=== PATIENT | female | born 1985 | race Caucasian/White ===

== ENCOUNTER 2018-04-03 15:37 | Emergency (ER) | payer MEDICAID ==
[~2018-04-03] VITALS: Ht 149.9 cm; Wt 64.1 kg
[~2018-04-03 15:37] MED LIST: CYCL-1 PO; ERYT1OIN6 LEFTEYE; PROM25TA14 PO
[2018-04-03 15:49] VITALS: BP 131/75
[2018-04-03] MEDS ORDERED: ERYT1OIN6 EACHEYE (16:28)
== END 2018-04-03 16:35 | disposition home or self-care (01) ==
LOC: ER 15:37
DX: H10.9 Unspecified conjunctivitis (principal); Z88.2 Allergy status to sulfonamides; Z79.899 Other long term (current) drug therapy
CPT/HCPCS: 99283

== ENCOUNTER 2019-01-10 14:47 | Observation (INO) | payer MEDICAID ==
[~2019-01-10] VITALS: Ht 149.9 cm; Wt 59.0 kg
[~2019-01-10 14:47] MED LIST changes: -ERYT1OIN6 LEFTEYE
[2019-01-10] MEDS ORDERED: naloxone 0.4 mg/ml inj IV ONE (15:25)
[2019-01-10] MEDS ORDERED: normal saline 1000ML IV soln IVB ONE (15:30)
[2019-01-10 15:39] LABS: BASOPHILS # (AUTO) 0.1 X10'3 (0-0.2); EOSINOPHILS # (AUTO) 0.2 X10'3 (0-0.9); EOSINOPHILS % (AUTO) 3.6 % (0-6); HEMATOCRIT 34.6 % (35.0-45.0); HEMOGLOBIN 11.7 g/dl (12.0-16.0); LYMPHOCYTES # (AUTO) 2.1 X10'3 (1.1-4.8); LYMPHOCYTES % (AUTO) 37.5 % (21-51); MEAN CORPUSCULAR HEMOGLOBIN 28.1 PG (27.0-31.0); MEAN CORPUSCULAR HGB CONC 33.8 g/dL (33.0-36.5); MEAN CORPUSCULAR VOLUME 82.9 FL (78-98); MEAN PLATELET VOLUME 7.3 FL (7.4-10.4); MONOCYTES # (AUTO) 0.4 X10'3 (0-0.9); MONOCYTES % (AUTO) 7.8 % (2-12); NEUTROPHILS # (AUTO) 2.9 X10'3 (1.8-7.7); NEUTROPHILS % (AUTO) 50.1 % (42-75); PLATELET COUNT 280 X10'3 (140-440); RED BLOOD COUNT 4.18 X10'6 (4.20-5.60); RED CELL DISTRIBUTION WIDTH 14.4 % (11.5-14.5); WHITE BLOOD COUNT 5.7 X10'3 (4.5-11.0)
[2019-01-10 15:50] LABS: ALANINE AMINOTRANSFERASE 22 U/L (12-78); ALBUMIN 3.8 G/DL (3.4-5.0); ALKALINE PHOSPHATASE 89 IU/L (46-116); ANION GAP 10 (8-16); ASPARTATE AMINO TRANSFERASE 14 U/L (10-37); BILIRUBIN,TOTAL 0.1 MG/DL (0.1-1.0); BLOOD UREA NITROGEN 12 MG/DL (7-18); BUN/CREATININE RATIO 16.7 (6.6-38.0); CALCIUM 8.5 MG/DL (8.5-10.1); CHLORIDE 107 MMOL/L (99-107); CREATININE 0.72 MG/DL (0.40-0.90); ETHANOL 0.029 GM/DL (0.0-0.010); GLUCOSE 80 MG/DL (70-104); POTASSIUM 3.7 MMOL/L (3.5-5.1); SODIUM 141 MMOL/L (135-145); TOTAL CARBON DIOXIDE 24.3 MMOL/L (24-32); TOTAL PROTEIN 7.5 G/DL (6.4-8.2); eGFR > 90 ML/MIN
[2019-01-10 15:56] LABS: URINE AMPHETAMINE SCREEN POSITIVE (Neg); URINE BARBITUATE SCREEN NEGATIVE (Neg); URINE BENZODIAZEPINES SCREEN POSITIVE (Neg); URINE CANNABINOID SCREEN NEGATIVE (Neg); URINE COCAINE SCREEN NEGATIVE (Neg); URINE METHADONE SCREEN NEGATIVE (Neg); URINE OPIATE SCREEN NEGATIVE (Neg); URINE PHENCYCLIDINE SCREEN NEGATIVE (Neg)
[2019-01-10] MEDS ORDERED: NO HOME MEDS (16:20)
--- NOTE | 2019-01-10 16:30 | NUR ---
NOTIFIED THE MD ABOUT PT BLD SUGAR 67. PER MD HE IS GOING TO ORDER SOME DEXTROSE. Addendum: 01/10/19 at [address] BLAND WAS NOTFIED.
[2019-01-10] MEDS ORDERED: dextrose 50%-water 50ml dispensing syringe IV ONE (16:35)
[2019-01-10] MEDS ORDERED: normal saline 1000ml 1,000 ML IV SCH (16:44)
[2019-01-10] MEDS ORDERED: ondansetron/PF 4mg/2ml inj IV PRN (16:45)
[2019-01-10] MEDS ORDERED: magnesium 2GM in 50ml NS 50 ML IV PRN (16:45)
[2019-01-10] MEDS ORDERED: acetaminophen 325mg tablet PO PRN ×2 (16:45)
[2019-01-10] MEDS ORDERED: potassium CL 10mEq/100ml bag 100 ML IV PRN (16:45)
[2019-01-10] MEDS ORDERED: magnesium Cl slow-release 64mg tablet PO PRN (16:45)
[2019-01-10] MEDS ORDERED: mag hydrox/Alum hydrox/simeth 30ml oral suspension PO PRN (16:45)
[2019-01-10] MEDS ORDERED: potassium Cl 20 mEq SR tablet PO PRN ×2 (16:45)
[2019-01-10] MEDS ORDERED: magnesium 4gm in 100ml NS 100 ML IV PRN (16:45)
[2019-01-10] MEDS ORDERED: magnesium hydroxide 30ml (MOM) UD suspension PO PRN (16:45)
[2019-01-10] MEDS ORDERED: potassium Cl 40MEQ/NS 500ml 500 ML IV PRN (16:45)
[2019-01-10] MEDS: dextrose 5%-normal saline 1,000 ML IV SCH (16:46)
--- NOTE | 2019-01-10 16:58 | NUR ---
NOTIFIED DR BLAND PT BLD SUGAR IS 208,NO NEW ORDERS .
[2019-01-10 17:39] LABS: ACETAMINOPHEN < 2.0 UG/ML (10-30)
[2019-01-10 19:10] LABS: URINE HCG NEGATIVE (NEG)
[2019-01-10] MEDS ORDERED: LORazepam 1 MG tablet PO PRN (20:25)
[2019-01-10] MEDS ORDERED: LORazepam 2 mg/ml vial IV PRN (20:25)
--- NOTE | 2019-01-10 21:01 | NUR ---
called dr jaquez regarding pt blood sugar 74,also informed the md that pt is sleeping not wakingup at all but vitals stable as per md will monitor the pt for now if pt is maintaing airways and bld sugar good then will just monitor the pt.continue with accucheck q1hr.
[2019-01-10 22:48] VITALS: BP 113/71
--- NOTE | 2019-01-10 22:50 | NUR ---
Patient admitted via stretcher and oriented to room 3022, call henson, and current plan of care with patient and patient's significant other. Educated patient and significant other importance of calling before getting out of bed. Patient unable to answer questions, very lethargic/drowsy, but able to squeeze hands on command. Skin assessment and MRSA swab complete. Patient's belongings in cabinet; significant other stated if he left he would take her belongings with him. Will continue to monitor patient closely.
[2019-01-11 02:00] VITALS: BP 119/79
[2019-01-11] MEDS: dextrose 5%-normal saline 1,000 ML IV SCH ×3 (02:16→22:35)
[2019-01-11 06:42] LABS: BASOPHILS % (AUTO) 0.7 % (0-1); EOSINOPHILS # (AUTO) 0.2 X10'3 (0-0.9); EOSINOPHILS % (AUTO) 3.2 % (0-6); HEMOGLOBIN 11.4 g/dl (12.0-16.0); LYMPHOCYTES # (AUTO) 2.2 X10'3 (1.1-4.8); LYMPHOCYTES % (AUTO) 38.3 % (21-51); MEAN CORPUSCULAR HEMOGLOBIN 28.1 PG (27.0-31.0); MEAN CORPUSCULAR HGB CONC 33.5 g/dL (33.0-36.5); MEAN CORPUSCULAR VOLUME 83.7 FL (78-98); MEAN PLATELET VOLUME 7.6 FL (7.4-10.4); MONOCYTES # (AUTO) 0.5 X10'3 (0-0.9); MONOCYTES % (AUTO) 8.4 % (2-12); NEUTROPHILS # (AUTO) 2.8 X10'3 (1.8-7.7); NEUTROPHILS % (AUTO) 49.4 % (42-75); PLATELET COUNT 244 X10'3 (140-440); RED BLOOD COUNT 4.06 X10'6 (4.20-5.60); RED CELL DISTRIBUTION WIDTH 15.1 % (11.5-14.5); WHITE BLOOD COUNT 5.8 X10'3 (4.5-11.0)
[2019-01-11 06:50] LABS: ALBUMIN 2.9 G/DL (3.4-5.0); ANION GAP 5 (8-16); BLOOD UREA NITROGEN 8 MG/DL (7-18); BUN/CREATININE RATIO 12.3 (6.6-38.0); CALCIUM 8.1 MG/DL (8.5-10.1); CHLORIDE 111 MMOL/L (99-107); CREATININE 0.65 MG/DL (0.40-0.90); GLUCOSE 95 MG/DL (70-104); MAGNESIUM 1.9 MG/DL (1.5-2.4); PHOSPHORUS 3.8 MG/DL (2.3-4.5); POTASSIUM 3.7 MMOL/L (3.5-5.1); SODIUM 143 MMOL/L (135-145); TOTAL CARBON DIOXIDE 27.4 MMOL/L (24-32); eGFR > 90 ML/MIN
[2019-01-11] MEDS: K and/or MAG REPLACEMENT MC SCH (08:00)
[2019-01-11] MEDS: MVI, adult No.4 with vit. K 10 ML in dextrose 5% water 500ml 500 ML IV SCH ×2 (08:29)
[2019-01-11] MEDS: enoxaparin 40mg/0.4ml syringe SQ SCH (08:30)
[2019-01-11] MEDS: thiamine inj. 100 MG, folic acid inj. 2 MG in normal saline 100ml IV soln 100 ML IV SCH (08:30)
[2019-01-11 11:00] VITALS: BP 113/73
[2019-01-11 15:00] VITALS: BP 122/59
[2019-01-11 18:00] VITALS: BP 110/78
--- NOTE | 2019-01-11 22:24 | NUR ---
pt caitlyned want to leave the facility, but changed her mind after knowing the risk and benefits of leaving AMA
[2019-01-11 23:00] VITALS: BP 125/82
--- NOTE | 2019-01-12 00:08 | NUR ---
Problems reprioritized. Patient report given, questions answered & plan of care reviewed with Manjula IZQUIERDO.
[2019-01-12] MEDS: dextrose 5%-normal saline 1,000 ML IV SCH (00:20)
[2019-01-12 02:00] VITALS: BP 120/68
[2019-01-12 05:40] LABS: BASOPHILS # (AUTO) 0.1 X10'3 (0-0.2); BASOPHILS % (AUTO) 0.9 % (0-1); EOSINOPHILS # (AUTO) 0.2 X10'3 (0-0.9); EOSINOPHILS % (AUTO) 3.6 % (0-6); HEMATOCRIT 35.7 % (35.0-45.0); LYMPHOCYTES # (AUTO) 2.3 X10'3 (1.1-4.8); LYMPHOCYTES % (AUTO) 39.6 % (21-51); MEAN CORPUSCULAR HGB CONC 33.7 g/dL (33.0-36.5); MEAN CORPUSCULAR VOLUME 83.3 FL (78-98); MEAN PLATELET VOLUME 7.5 FL (7.4-10.4); MONOCYTES # (AUTO) 0.4 X10'3 (0-0.9); MONOCYTES % (AUTO) 7.6 % (2-12); NEUTROPHILS # (AUTO) 2.8 X10'3 (1.8-7.7); NEUTROPHILS % (AUTO) 48.3 % (42-75); PLATELET COUNT 255 X10'3 (140-440); RED BLOOD COUNT 4.29 X10'6 (4.20-5.60); RED CELL DISTRIBUTION WIDTH 14.5 % (11.5-14.5); WHITE BLOOD COUNT 5.8 X10'3 (4.5-11.0)
--- NOTE | 2019-01-12 06:00 | NUR ---
Patient in room U 3022. I have received report from FELECIA Fair and had the opportunity to ask questions and assume patient care. Patient is currently sleeping in bed, bed locked and low, call light in reach, no acute distress, no needs at this time.
[2019-01-12 06:11] LABS: ALBUMIN 2.9 G/DL (3.4-5.0); ANION GAP 7 (8-16); BLOOD UREA NITROGEN 13 MG/DL (7-18); BUN/CREATININE RATIO 18.3 (6.6-38.0); CALCIUM 8.3 MG/DL (8.5-10.1); CHLORIDE 107 MMOL/L (99-107); CREATININE 0.71 MG/DL (0.40-0.90); GLUCOSE 90 MG/DL (70-104); MAGNESIUM 1.7 MG/DL (1.5-2.4); PHOSPHORUS 4.3 MG/DL (2.3-4.5); POTASSIUM 4.1 MMOL/L (3.5-5.1); SODIUM 141 MMOL/L (135-145); TOTAL CARBON DIOXIDE 27.2 MMOL/L (24-32); eGFR > 90 ML/MIN
[2019-01-12 07:10] VITALS: BP 127/75
[2019-01-12] MEDS: K and/or MAG REPLACEMENT MC SCH (08:00)
[2019-01-12] MEDS: MVI, adult No.4 with vit. K 10 ML in dextrose 5% water 500ml 500 ML IV SCH ×2 (08:29)
[2019-01-12] MEDS: thiamine inj. 100 MG, folic acid inj. 2 MG in normal saline 100ml IV soln 100 ML IV SCH (08:29)
[2019-01-12] MEDS: enoxaparin 40mg/0.4ml syringe SQ SCH (08:30)
--- NOTE | 2019-01-12 10:13 | NUR ---
PAGER ID: [phone] MESSAGE: FELECIA Garcia, [id number], Gaurang, pt ambulated one lap around unit, states no dizziness or light headedness, gait stable, states she is ready to go home. Thank you
--- NOTE | 2019-01-12 13:01 | NUR ---
Received orders for patient discharge to home. Patient provided with education on avoiding accidental overdose in the future and her health summary was reviewed. Patient is stable. IV removed, telemetry removed, wrist band removed. Patient is able to ambulate but was taken down in wheelchair. Patient denies complaints at time of discharge.
== END 2019-01-12 13:05 | disposition home or self-care (01) ==
LOC: ER 14:48 → PCU 3S 16:44 → CMPBEDREQ 21:35
PROVIDERS: ADMIT Hospitalist; ATTEND Hospitalist
DX: G92 Toxic encephalopathy (principal); E16.2 Hypoglycemia, unspecified; F17.200 Nicotine dependence, unspecified, uncomplicated; F41.9 Anxiety disorder, unspecified; Z86.59 Personal history of other mental and behavioral disorders; Z87.59 Personal history of other complications of pregnancy, childbirth and the puerperium
CPT/HCPCS: 36415; 71045; 80048; 80053; 80305; 80320; 80329; 81025; 82948; 83735; 84100; 85025; 87070; 93005; 96365; 96366; 96367; 96372; 96375; 99284; G0378; J3411; J3490; J7042; J7060; J1650; J7030